=== PATIENT | female | born 1960 | race Caucasian/White ===

== ENCOUNTER 2018-02-01 04:05 | Day surgery (SDC) | payer OTHER ==
[2018-02-01] MEDS ORDERED: Ondansetron ODT 4 MG TAB ONE ×2 (04:21→05:21)
[2018-02-01 04:49] LABS: #Basophils 0.1 thou/uL (0.0-0.2); #Eosinphils 0.1 thou/uL (0.0-0.7); #Lymphocytes 2.4 thou/uL (1.20-3.40); #Monocytes 0.6 thou/uL (0.11-0.59); #Neutrophils 9.2 thou/uL (1.40-6.50); %Basophils 0.8 % (0.0-1.0); %Lymphocytes 19.5 % (21.0-51.0); %Monocytes 4.6 % (0.0-10.0); %Neutrophils 74.1 % (42.0-75.0); Hemoglobin 13.3 g/dL (12.0-16.0); Mean Corpuscular HGB CONC 34.6 g/dL (32.0-36.0); Mean Corpuscular Hemoglobin 28.7 pg (27.0-31.0); Mean Corpuscular Volume 83.1 fL (78.0-98.0); Mean Platelet Volume 7.9 fL (7.4-10.4); Platelet Count 317 thou/uL (130-400); Red Blood Cell (RBC) Count 4.62 mill/uL (4.20-5.40); White Blood Cell (WBC) Count 12.4 thou/uL (4.8-10.8)
[2018-02-01 05:10] LABS: PTT 29.1 SEC (22.9-36.1); Prothrombin Time 12.8 SEC (12.0-14.7)
[2018-02-01 05:13] LABS: CKMB 0.4 ng/mL (0-6.6); Troponin I Less than 0.010 ng/mL (< 0.028)
[2018-02-01 05:26] LABS: ALT (SGPT) 22 U/L (8-55); AST (SGOT) 19 U/L (5-34); Albumin 4.4 g/dL (3.5-5.0); Alkaline Phosphatase 149 U/L (40-150); Anion Gap 16 mmol/L (10-20); BUN (Urea Nitrogen) 14 mg/dL (9.8-20.1); Bilirubin, Total 0.6 mg/dL (0.2-1.2); CK (CPK) 31 U/L (29-168); Calc. Creatinine Clearance 0 mL/min (70-130); Calcium 10.4 mg/dL (7.8-10.44); Carbon Dioxide 26 mmol/L (22-29); Chloride 100 mmol/L (98-107); Estimated GFR-MDRD 70; Globulin 3.4 g/dL (2.4-3.5); Glucose 158 mg/dL (70-105); Lipase 19 U/L (8-78); Potassium 3.4 mmol/L (3.5-5.1); Protein, Total 7.8 g/dL (6.0-8.3); Sodium 139 mmol/L (136-145)
[2018-02-01] MEDS ORDERED: MEROPENEM 1 GM/50 ML 1 GM in Premix Bag 1 BAG IVPB SCH (06:00)
[2018-02-01] MEDS ORDERED: Bupivacaine HCl 0.5%/Epinephrine 1:200,000/PF 30 ml Vial ONE (06:54)
[2018-02-01] MEDS ORDERED: Iothalamate Meglumine 60% 50 ML VIAL FS ONE (06:54)
[2018-02-01] MEDS ORDERED: Fentanyl 100 MCG/2 ML VIAL ONE (08:21)
[2018-02-01] MEDS ORDERED: Midazolam HCl 2 mg/2 ml Vial ONE (08:21)
[2018-02-01] MEDS ORDERED: HYDROmorphone 0.5 MG/0.5 ML SYRINGE ONE (08:21)
[2018-02-01] MEDS ORDERED: D5 1/2 NS w/20 mEq KCL 0 ML ONE (08:33)
--- NOTE | 2018-02-01 08:42 | RAD ---
FRONTAL VIEW CHEST: INDICATION: Nausea, vomiting, and pain. History of gallstones. FINDINGS: Lungs are clear. No effusion or pneumothorax. No free air beneath the hemidiaphragms. Cardiac silh ouette is accentuated by portable technique. IMPRESSION: No focal consolidation. POS: C
--- NOTE | 2018-02-01 08:43 | ULT ---
PRELIMINARY REPORT/[facility]/EMERGENTY AFTER-HOURS PROCEDURE US Abdomen Limited, Right Upper Quadrant CLINICAL HISTORY: 57 years old, female; Pain; Other: Sever abd pain, HX of gallstones TECHNIQUE: Real-time ultrasound of the abdomen with image documentation. Examination is focused on the right upper quadrant. COMPARISON: No relevant prior studies available. FINDINGS: Liver: Normal. No masses. Gallbladder: Cholelithiasis. Gallbladder is distended. Diffuse gallbladder wall thickening. No perich olecystic fluid. Sonographic Nielsen's sign is positive. Common bile duct: Extrahepatic bile is within normal limits at 5 mm in caliber. There is an equivocal filling defect in the distal end of the visualized portion of the extrahepatic duct which raises the possibility of but is not diagnostic of choledocholithiasis. Pancreas: Visualized pancreas is unremarkable. Right kidney: Normal. No mass. No hydronephrosis. IMPRESSION: 1. Cholelithiasis. Acute cholecystitis. 2. Extrahepatic bile is within normal limits at 5 mm in caliber. There is an equivocal filling defect in the distal end of the visualized portion of the extrahepatic duct which raises the possibility of but is not diagnostic of choledocholithiasis. Consider CT scan, preferably with intravenous contrast, to evaluat e the common bile duct. Thank you for allowing us to participate in the care of your patient. Dictated and Authenticated by: Ray Eastman MD 02/01/2018 5:21 AM Central Time ([place] & [place]) FINAL REPORT GALLBLADDER ULTRASOUND: FINDINGS/IMPRESSION: Agree with the preliminary interpretation provided above. Evidence of cholelithiasis and cholecystitis. Recommend surgical consultation. Borderline-sized common duct. Correlate with laboratory values. Vague increased density within the imaged common duct could relate to a component of choledocholithiasis, although this is difficult to further discern.
[2018-02-01] MEDS ORDERED: Scopolamine 1.5 mg/72 hour Patch ONE (09:09)
[2018-02-01] MEDS ORDERED: Ketorolac Tromethamine 30 MG/ML VIAL ONE (09:09)
--- NOTE | 2018-02-01 09:50 | HP ---
HISTORY OF PRESENT ILLNESS: Lalitha Hernandes is a 57-year-old female from [place] visiting their property in [facility]. She experienced acute onset of right upper quadrant epigastric pain with nausea. S he presented in the emergency room and had an abdominal ultrasound revealing multiple gallstones, 5-m m bile duct and questionable density in the distal bile duct. Patient had been seen a surgeon in [facility] and had plans to have her cholecystectomy in mid January. She has been having symptoms episodic fo r several months. ALLERGIES: ERYTHROMYCIN BASE causes yeast infections, IBUPROFEN causes nausea. She can take Advil a nd Aleve without problems. No true allergies. TOBACCO: None. ALCOHOL: Rarely. MEDICATIONS: Prilosec, omeprazole, Carafate, Premarin. PAST SURGICAL HISTORY: Hysterectomy without oophorectomy. PAST MEDICAL HISTORY: Noncontributory. 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 Her is retir ed. FAMILY HISTORY: Mother had cardiac problems. REVIEW OF SYSTEMS: Ten point noncontributory. She has had a colonoscopy that was normal. PHYSICAL EXAMINATION: VITAL SIGNS: 78 kilograms, 131/84, 79 and 20. HEAD, EYES, EARS, NOSE, AND THROAT: Unremarkable. NEUROLOGIC: Neurologically intact. Cranial nerves intact. NECK: Without masses, no bruits. LUNGS: Clear to auscultation. CARDIAC: Regular rate and rhythm without murmur or gallop. ABDOMEN: Soft, tenderness in right upper quadrant with positive Nielsen sign. EXTREMITIES: Unremarkable. No ankle edema, palpable pedal pulses. No venous stasis changes. LABORATORY DATA: White count 12, hemoglobin 13. Comprehensive metabolic profile normal. Potassium 3.4. Liver function tests normal. Coagulation studies normal. Normal PT, INR, PTT. Ultrasound res ults as noted above. EKG normal. ASSESSMENT AND PLAN: Acute cholecystitis and cholelithiasis. Recommend laparoscopic video cholecyst ectomy. Would recommend cholangiograms due to the equivocal ultrasound finding although risk of chol edocholithiasis is low with normal caliber bile duct and normal liver function tests. I have discuss ed with Dr. Niall Cox and should ERCP not be necessary, we will plan that on the same anesthesia. Decision of course based on results of cholangiograms. Risk of operation including infection, blee ding, visceral and biliary injury, open procedure discussed. Questions answered. Risk of ERCP discu ssed and explained, questions invited including risks discussed of infection, bleeding, perforation, pancreatitis associated with ERCP.
--- NOTE | 2018-02-01 10:52 | RAD ---
INTRAOPERATIVE CHOLANGIOGRAM: EXPOSURE: 0.420 mGy. Three seconds. FINDINGS: Single image demonstrates cannulation of the cystic duct. There is appropriate contrast opacificatio n of the intra- and extrahepatic biliary system. No dilatation. Contrast is noted in the small bhavani l. IMPRESSION: Intraoperative cholangiogram as above. POS: HAM
[2018-02-01] MEDS ORDERED: Promethazine HCl 25 MG/ML VIAL ONE (11:48)
[2018-02-01] MEDS ORDERED: Glycopyrrolate 0.2 MG/ML 5 ML SYRINGE ONE (14:50)
[2018-02-01] MEDS ORDERED: Lidocaine 1% PF 5 ML VIAL ONE (14:50)
[2018-02-01] MEDS ORDERED: PROPOFOL 200 MG/20 ML VIAL ONE (14:50)
[2018-02-01] MEDS ORDERED: Succinylcholine Chloride 20 MG/ML 10 ml SYRINGE FS ONE (14:50)
[2018-02-01] MEDS ORDERED: PHENYLEPHRINE-NS 100 MCG/ML 10 ML SYRINGE ONE (14:50)
[2018-02-01] MEDS ORDERED: Dexamethasone 20 MG/5 ML VIAL ONE (14:50)
[2018-02-01] MEDS ORDERED: Ondansetron HCl/PF 4 MG/2 ML Vial ONE (14:50)
--- NOTE | 2018-02-01 15:13 | OP ---
PREOPERATIVE DIAGNOSES: Acute and chronic cholecystitis, cholelithiasis. Ultrasound suggests distal common bile duct stone, even though common bile duct is 4 mm in diameter and liver function tests ar e normal. POSTOPERATIVE DIAGNOSES: Acute and chronic cholecystitis, cholelithiasis. Ultrasound suggests dista l common bile duct stone, even though common bile duct is 4 mm in diameter and liver function tests a re normal. PROCEDURES PERFORMED: Laparoscopic video cholecystectomy. Normal intraoperative cholangiogram. Flu oroscopy less than one minute used. Prompt emptying of contrast into the duodenum with normal taperi ng of the distal common bile duct without filling defects of the common hepatic, common bile, left an d right hepatic ducts. ANESTHESIA: Local 0.5% Marcaine with epinephrine. ESTIMATED BLOOD LOSS: Less than 10 mL. PROCEDURE IN DETAIL: The patient was taken to the operating room where under general anesthesia, abd omen was prepared with ChloraPrep, draped in routine fashion. Local anesthetic infiltrated into the skin and subcutaneous tissue about each port site. Infraumbilical incision made and pneumoperitoneum to 15 mmHg obtained with the Veress needle, replacing it with a 5-port and laparoscope inserted. Ri ght subxiphoid incision made and 11 port placed. Right subcostal incision made mid clavicular anteri or axillary lines and 5 ports placed. Liver appeared to be normal. Gallbladder was acutely inflamed with a thickened wall, edematous wall and distended gallbladder, difficult to grasp. The gallbladde r fundus grasped and reflected cephalad. Infundibulum grasped and reflected laterally. Cystic duct occluded by a stone in the outlet. Cystic artery and duct dissected free. Critical view obtained. Cystic artery double clipped proximally. Cystic duct singly clipped on the gallbladder side. An ope cheryl made in the cystic duct and cholangiocatheter inserted and cholangiogram was obtained using fluo roscopy revealing the above cholangiographic findings. Cholangiocatheter removed. Cystic duct stump doubly clipped. Cystic artery and duct divided. The gallbladder dissected free from liver bed obta ining good hemostasis prior to division of final peritoneal attachments. Gallbladder and contents re moved and submitted to Pathology. Good hemostasis ensured in liver bed. Irrigant and pneumoperitone um evacuated. All this instruments removed and all skin incisions approximated with interrupted subd ermal 4-0 Monocryl and DermaGlue applied. The patient tolerated the procedure well.
== END 2018-02-01 14:45 | disposition home or self-care (01) ==
LOC: ERS 04:05 → SDC 06:07 → ER/OP 08:43 → ERS 14:45 → SDC 14:45
PROVIDERS: ATTEND Specialist
PROC: BF13YZZ Fluoroscopy of Gallbladder and Bile Ducts using Other Contrast (ICD-10-PCS; principal; 2018-02-01)
PROC: 0FT44ZZ Resection of Gallbladder, Percutaneous Endoscopic Approach (ICD-10-PCS; principal; 2018-02-01)
DX: K80.12 Calculus of gallbladder with acute and chronic cholecystitis without obstruction (principal); Z88.8 Allergy status to other drugs, medicaments and biological substances
CPT/HCPCS: 47532; 71045; 76705; 80053; 82553; 83690; 84484; 85025; 85610; 85730; 88304; 93005; 96361; 96365; 96375; 96376; J0131; J0670; J1100; J1170; J1610; J1885; J2001; J2185; J2250; J2270; J2405; J2550; J2704; J3010; Q0162; Q9961